=== PATIENT | female | born 1980 | race Caucasian/White ===

== ENCOUNTER 2016-12-07 11:09 | Emergency (ER) | payer OTHER ==
[2016-12-07 11:15] VITALS: BP 141/83
[2016-12-07] MEDS ORDERED: IBUPROFEN 800 MG TABLET PO ONE (11:39)
--- NOTE | 2016-12-07 11:46 | ER Document Report ---
ED Burn/Smoke/Toxic Fumes - General Chief Complaint: Burn Stated Complaint: LEG PAIN Time Seen by Provider: 12/07/16 11:21 Mode of Arrival: Ambulatory Information source: Patient Notes: 36-year-old female presents to ED from sunburn to bilateral front of her legs she states she has headache in the sun from 11-4 yesterday she thinks he has swelling to both legs. TRAVEL OUTSIDE OF THE [place] IN LAST 30 DAYS: No - HPI Patient complains to provider of: Other Onset: Yesterday Where: Outdoors Severity: Severe Pain Level: 5 Context: Other Associated Symptoms: Other - She feels that her legs are swollen and tight Other injuries: LLE, RLE - Related Data Allergies/Adverse Reactions: prednisone Allergy (Severe, Verified 12/07/16 11:26) redness and swelling Past Medical History - General Information source: Patient - Social History Smoking Status: Current Every Day Smoker Chew tobacco use (# tins/day): No Frequency of alcohol use: None Drug Abuse: None Lives with: Family Family History: CAD Patient has suicidal ideation: No Patient has homicidal ideation: No - Past Medical History Cardiac Medical History: Reports: None Pulmonary Medical History: Reports: None EENT Medical History: Reports: None Neurological Medical History: Reports: None Endocrine Medical History: Reports: None Malignancy Medical History: Reports: None GI Medical History: Reports: None Musculoskeltal Medical History: Reports Hx Musculoskeletal Deformity, Reports Hx Musculoskeletal Trauma Psychiatric Medical History: Reports: None Traumatic Medical History: Reports: None Infectious Medical History: Reports: None Past Surgical History: Reports: Hx Section - 2, Hx Orthopedic Surgery - lt knee arthroscopy, Hx Tubal Ligation - Immunizations Hx Diphtheria, Pertussis, Tetanus Vaccination: No - 2002 Hx Pneumococcal Vaccination: 07/13/00 Review of Systems - Review of Systems Constitutional: No symptoms reported EENT: No symptoms reported Cardiovascular: No symptoms reported Respiratory: No symptoms reported Gastrointestinal: No symptoms reported Genitourinary: No symptoms reported Female Genitourinary: No symptoms reported Musculoskeletal: No symptoms reported Skin: Other - Erythematous sunburn to bilateral front of legs no blisters noted Hematologic/Lymphatic: No symptoms reported Neurological/Psychological: No symptoms reported -: Yes All other systems reviewed and negative Physical Exam - Vital signs Vitals: Temp Pulse Resp BP Pulse Ox 98.2 F 99 16 141/83 H 99 12/07/16 11:14 12/07/16 11:14 12/07/16 11:14 12/07/16 11:14 12/07/16 11:14 Interpretation: Normal - General General appearance: Appears well, Alert - HEENT Head: Normocephalic, Atraumatic Eyes: Normal Pupils: PERRL - Respiratory Respiratory status: No respiratory distress Chest status: Nontender Breath sounds: Normal Chest palpation: Normal - Cardiovascular Rhythm: Regular Heart sounds: Normal auscultation Murmur: No - Abdominal Inspection: Normal Distension: No distension Bowel sounds: Normal Tenderness: Nontender Organomegaly: No organomegaly - Back Back: Normal, Nontender - Extremities General upper extremity: Normal inspection, Nontender, Normal color, Normal ROM , Normal temperature General lower extremity: Normal weight bearing. No: Sakina's sign Thigh: Tender - Erythematous warm sunburn Knee: Tender, Other - Front erythematous warm sunburn Calf: Tender, Other - Front erythematous warm sunburn Ankle: Tender. No: Other - Front erythematous warm sunburn - Neurological Neuro grossly intact: Yes Cognition: Normal Orientation: AAOx4 Viviana Coma Scale Eye Opening: Spontaneous Viviana Coma Scale Verbal: Oriented Viviana Coma Scale Motor: Obeys Commands [place] Coma Scale Total: 15 Speech: Normal Motor strength normal: LUE, RUE, LLE, RLE Sensory: Normal - Psychological Associated symptoms: Normal affect, Normal mood - Skin Skin Temperature: Warm Skin Moisture: Dry Skin Color: Normal Location of irregularity: Extremities - Front of bilateral legs erythematous warm sunburn Character of irregularity: Erythematous Irregularity with: Tenderness, Warmth Course - Re-evaluation Re-evalutation: 12/07/16 11:52 Treated with ibuprofen in the ER and instructed to use aloe with lidocaine for the discomfort of legs. - Vital Signs Vital signs: Temp Pulse Resp BP Pulse Ox 98.2 F 99 16 141/83 H 99 12/07/16 11:14 12/07/16 11:14 12/07/16 11:14 12/07/16 11:14 12/07/16 11:14 Discharge - Discharge Clinical Impression: sunburn to blateral legs Condition: Stable Disposition: HOME, SELF-CARE Instructions: Family Physicians / Practices Additional Instructions: Sunburn Sunburn is caused by prolonged exposure to ultraviolet light. This can be natural sunlight or a tanning bed. Your symptoms may include redness or blistering of the skin, fatigue, weakness, and chills that last two or three days. Treatment includes antiinflammatory pain medication, rest, cooling baths, and moisturizing skin cream. Occasionally, cortisone-type medicine is required for severe sunburns. Antihistamines may be helpful if itching is severe as you heal. You should avoid any exposure to ultraviolet light for the next week or two so that further skin damage can be avoided. In the future, you should use sunscreens. Frequent or prolonged ultraviolet light exposure can cause premature skin aging, skin cancers, and wrinkles. Call the doctor if you are not improving in two or three days. Report any drainage, increasing swelling, fever, chills, or other signs of infection. Try the blue aloe lidocaine the pain. Cool baths and antihistamine the itching ibuprofen for pain. FOLLOW-UP CARE: If you have been referred to a physician for follow-up care, call the physician s office for an appointment as you were instructed or within the next two days. If you experience worsening or a significant change in your symptoms, notify the physician immediately or return to the Emergency Department at any time for re-evaluation. Forms: Elevated Blood Pressure, Smoking Cessation Education, Return to Work
== END 2016-12-07 11:53 | disposition home or self-care (01) ==
LOC: ER 11:09
DX: L55.9 Sunburn, unspecified (principal); R51 Headache; M79.89 Other specified soft tissue disorders; F17.200 Nicotine dependence, unspecified, uncomplicated
CPT/HCPCS: 99283

== ENCOUNTER 2017-01-10 10:10 | Emergency (ER) | payer OTHER ==
[2017-01-10] MEDS ORDERED: IPRATROPIUM/ALBUTEROL 0.5-2.5 MG/3 ML AMPUL NEB ONE (10:58)
[2017-01-10] MEDS ORDERED: DEXAMETHASONE 4 MG TABLET PO ONE (10:58)
[2017-01-10] MEDS ORDERED: PSEUDOEPHEDRINE HCL 30 MG TABLET PO ONE (10:59)
--- NOTE | 2017-01-10 11:00 | ER Document Report ---
HPI - HPI Patient complains to provider of: cold symptoms Onset: Other - 3 days Onset/Duration: Gradual Quality of pain: Achy Pain Level: 2 Context: Patient presents with 3 day history of sinus congestion, cough and sore throat. Patient states cough has been productive. Patient has been using albuterol and Pulmicort nebulizer at home without improvement of her symptoms. Patient is here with her child who is also having cough and congestion symptoms. Patient denies any fever. Associated Symptoms: Productive cough, Earache, Sinus pain/drainage, Sore throat. denies: Fever, Nausea, Vomiting Exacerbated by: Denies Relieved by: Denies Similar symptoms previously: Yes Recently seen / treated by doctor: No - ROS ROS below otherwise negative: Yes Systems Reviewed and Negative: Yes All other systems reviewed and negative - CONSTITUTIONAL Constitutional: DENIES: Fever - EENT EENT: REPORTS: Sore Throat, Nasal Drainage-Clear, Congestion - NEURO Neurology: DENIES: Headache - RESPIRATORY Respiratory: REPORTS: Coughing. DENIES: Trouble Breathing - GASTROINTESTINAL Gastrointestinal: DENIES: Patient vomiting, Diarrhea - REPRODUCTIVE Reproductive: DENIES: : - MUSCULOSKELETAL Musculoskeletal: DENIES: Back Pain - DERM Skin Color: Normal Skin Problems: None Past Medical History - General Information source: Patient - Social History Smoking Status: Current Every Day Smoker Cigarette use (# per day): Yes - Half pack per day Smoking Education Provided: Yes - for at least 3 minutes Frequency of alcohol use: None Drug Abuse: None 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 Family History: CAD Patient has suicidal ideation: No Patient has homicidal ideation: No Pulmonary Medical History: Reports: Hx Bronchitis EENT Medical History: Reports: Other - allergies Renal/ Medical History: Denies: Hx Peritoneal Dialysis Musculoskeltal Medical History: Reports Hx Musculoskeletal Deformity, Reports Hx Musculoskeletal Trauma Past Surgical History: Reports: Hx Section - 2, Hx Orthopedic Surgery - lt knee arthroscopy, Hx Tubal Ligation - Immunizations Hx Diphtheria, Pertussis, Tetanus Vaccination: No - 2002 Hx Pneumococcal Vaccination: 07/13/00 Vertical Provider Document - CONSTITUTIONAL Agree With Documented VS: Yes Exam Limitations: No Limitations General Appearance: WD/WN, No Apparent Distress - INFECTION CONTROL TRAVEL OUTSIDE OF THE [place] IN LAST 30 DAYS: No - HEENT HEENT: Atraumatic, Normocephalic. negative: Pharyngeal Exudate, Pharyngeal Tenderness, Pharyngeal Erythema, Tympanic Membrane Red, Tympanic Membrane Bulging Notes: serous Effusion to left ear - NECK Neck: Normal Inspection, Supple - RESPIRATORY Respiratory: No Respiratory Distress, Chest Non-Tender, Rhonchi, Wheezing O2 Sat by Pulse Oximetry: 97 - CARDIOVASCULAR Cardiovascular: Regular Rate, Regular Rhythm, No Murmur - BACK Back: Normal Inspection - MUSCULOSKELETAL/EXTREMETIES Musculoskeletal/Extremeties: MAEW - NEURO Level of Consciousness: Awake, Alert, Appropriate Motor/Sensory: No Motor Deficit - DERM Integumentary: Warm, Dry, No Rash Course - Re-evaluation Re-evalutation: 01/10/17 13:08 Patient continues with scattered wheezing bilaterally with improved air movement. Patient has been taking small sips of oral fluids. Patient continues tachycardic, IV fluids ordered. 01/10/17 14:21 Patient with decreased wheezing bilaterally. Patient states that she does feel somewhat improved. Respirations unlabored. Patient does continue with occasional cough. Discussed worsening signs or symptoms that patient should return immediately for. Patient verbalized understanding and agrees with plan of care. - Vital Signs Vital signs: Temp Pulse Resp BP Pulse Ox 98.5 F 105 H 24 H 147/82 H 97 01/10/17 10:14 01/10/17 10:14 01/10/17 10:14 01/10/17 10:14 01/10/17 10:14 - Laboratory Laboratory results interpreted by me: 01/10/17 14:21 Labs- Entire Visit 01/10/17 11:10 Group A Strep Rapid NEGATIVE - Diagnostic Test Radiology reviewed: Reports reviewed Discharge - Discharge Clinical Impression: Wheezing, Nasal congestion Upper respiratory infection Qualifiers: URI type: unspecified URI Qualified Code(s): J06.9 - Acute upper respiratory infection, unspecified Condition: Stable Disposition: HOME, SELF-CARE Instructions: Stop Smoking ([facility]) Additional Instructions: Return immediately for any new or worsening symptoms Followup with your primary care provider, call tomorrow to make a followup appointment Use saline nasal spray [id number] as directed. You may use Sudafed [id number] to help with nasal congestion Use your nebulizer at home as prescribed Prescriptions: Benzonatate [Tessalon Perle 100 mg Capsule] 100 mg PO Q8HP PRN #20 cap PRN Reason: Dexamethasone 4 mg PO DAILY #4 tablet Hydrocodone/Acetaminophen [Kane 5-325 Tablet] 1 each PO Q8 PRN #12 tablet PRN Reason: Forms: Smoking Cessation Education, Return to Work Referrals: DEVON VAZQUEZ MD [NO LOCAL MD] - 01/12/17
[2017-01-10] MEDS ORDERED: ACETAMINOPHEN 325 MG TABLET PO ONE (11:01)
--- NOTE | 2017-01-10 11:30 | RADIOLOGY REPORT (SQ) ---
EXAM DESCRIPTION: CHEST PA/LAT COMPLETED DATE/TIME: 01/10/2017 11:15 am REASON FOR STUDY: cough COMPARISON: 2011. TECHNIQUE: Frontal and lateral radiographic views of the chest acquired. NUMBER OF VIEWS: Two view. LIMITATIONS: None. FINDINGS: LUNGS AND PLEURA: No opacities, masses or pneumothorax. No pleural effusion. MEDIASTINUM AND HILAR STRUCTURES: No masses or contour abnormalities. HEART AND VASCULAR STRUCTURES: Heart normal size. No evidence for failure. BONES: No acute findings. HARDWARE: None in the chest. OTHER: No other significant finding. IMPRESSION: NO SIGNIFICANT RADIOGRAPHIC FINDING IN THE CHEST. TECHNICAL DOCUMENTATION: JOB ID: [id number] [employer]- All Rights Reserved
[2017-01-10] MEDS ORDERED: ALBUTEROL SULFATE 0.083% NEB 2.5 MG/3 ML AMPUL NEB ONE ×2 (11:48→12:17)
[2017-01-10] MEDS ORDERED: NORMAL SALINE 1000 ML 1,000 ML IV ONE (13:08)
[2017-01-10 14:50] VITALS: BP 120/62
== END 2017-01-10 14:51 | disposition home or self-care (01) ==
LOC: ER 10:10
DX: J06.9 Acute upper respiratory infection, unspecified (principal); R09.81 Nasal congestion; R06.2 Wheezing; F17.210 Nicotine dependence, cigarettes, uncomplicated; Z98.51 Tubal ligation status
CPT/HCPCS: 94640 ×2; 99283; 87070; 87880; 87077; 71020; J7030; J7620

== ENCOUNTER 2018-05-20 13:58 | Emergency (ER) | payer OTHER ==
--- NOTE | 2018-05-20 14:37 | ER Document Report ---
ED General - General Chief Complaint: Shoulder Pain Stated Complaint: RIGHT SHOULDER PAIN Time Seen by Provider: 05/20/18 14:16 Mode of Arrival: Ambulatory Information source: Patient Notes: 37-year-old female presents to ED for complaint of right shoulder and neck scapular and clavicle and arm pain. She states this started about 2 weeks ago it was a achy pain that would come and go. She states it is been very intermittent until last night the pain got much worse lasted for about 2 minutes and then has been achy and throbbing since then. She states the pain is much worse when she moves the arm or tries to lift the arm above her head. She states she had an appointment with orthopedics this morning but it was for her knee replacement and he stated they could not see her for a new problem that she would need to get a new consult for a new problem. 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 She states she has Celebrex and she took one today and she has tramadol from her knee replacement and she does not need new pain medicine she just needs to know why it is getting worse. TRAVEL OUTSIDE OF THE [place] IN LAST 30 DAYS: No - HPI Onset: Other - 2 weeks with exacerbation last night Onset/Duration: Gradual, Intermittent Quality of pain: Achy, Sharp, Throbbing Severity: Moderate Pain Level: 4 Associated symptoms: Other - Right neck shoulder clavicle scapular and arm Exacerbated by: Movement Relieved by: Denies Similar symptoms previously: Yes Recently seen / treated by doctor: Yes - Related Data Allergies/Adverse Reactions: prednisone Allergy (Severe, Verified 05/20/18 13:59) redness and swelling Past Medical History - General Information source: Patient - Social History Smoking Status: Current Every Day Smoker Cigarette use (# per day): Yes - 10 cig a day Chew tobacco use (# tins/day): No Smoking Education Provided: Yes Frequency of alcohol use: None Drug Abuse: None 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 Family History: CAD Patient has suicidal ideation: No Patient has homicidal ideation: No - Past Medical History Cardiac Medical History: Reports: None Pulmonary Medical History: Reports: Hx Bronchitis EENT Medical History: Reports: None Neurological Medical History: Reports: None Endocrine Medical History: Reports: None Renal/ Medical History: Reports: None Malignancy Medical History: Reports: None GI Medical History: Reports: None Musculoskeletal Medical History: Reports Hx Musculoskeletal Deformity, Reports Hx Musculoskeletal Trauma Skin Medical History: Reports None Psychiatric Medical History: Reports: None Traumatic Medical History: Reports: None Infectious Medical History: Reports: None Past Surgical History: Reports: Hx Section - 2, Hx Orthopedic Surgery - lt knee arthroscopy, Hx Tubal Ligation - Immunizations Hx Diphtheria, Pertussis, Tetanus Vaccination: No - 2002 Hx Pneumococcal Vaccination: 07/13/00 Review of Systems - Review of Systems Constitutional: No symptoms reported EENT: No symptoms reported Cardiovascular: No symptoms reported Respiratory: No symptoms reported Gastrointestinal: No symptoms reported Genitourinary: No symptoms reported Female Genitourinary: No symptoms reported Musculoskeletal: No symptoms reported Skin: No symptoms reported Hematologic/Lymphatic: No symptoms reported Neurological/Psychological: No symptoms reported -: Yes All other systems reviewed and negative Physical Exam - Vital signs Vitals: Temp Pulse Resp BP Pulse Ox 98.6 F 93 18 148/90 H 98 05/20/18 14:13 05/20/18 14:13 05/20/18 14:13 05/20/18 14:13 05/20/18 14:13 Interpretation: Normal - General General appearance: Appears well, Alert - HEENT Head: Normocephalic, Atraumatic Eyes: Normal Pupils: PERRL - Respiratory Respiratory status: No respiratory distress Chest status: Nontender Breath sounds: Normal Chest palpation: Normal - Cardiovascular Rhythm: Regular Heart sounds: Normal auscultation Murmur: No - Abdominal Inspection: Normal Distension: No distension Bowel sounds: Normal Tenderness: Nontender Organomegaly: No organomegaly - Back Back: Normal, Tender - cervical area. No: Vertebra tenderness - Extremities General upper extremity: Normal color, Normal temperature General lower extremity: Normal inspection, Nontender, Normal color, Normal ROM , Normal temperature, Normal weight bearing. No: Sakina's sign Shoulder: Tender, Limited ROM - due to pain Arm: Tender - Neurological Neuro grossly intact: Yes Cognition: Normal Orientation: AAOx4 Viviana Coma Scale Eye Opening: Spontaneous [place] Coma Scale Verbal: Oriented Peak Coma Scale Motor: Obeys Commands [place] Coma Scale Total: 15 Speech: Normal Motor strength normal: LUE, RUE, LLE, RLE Sensory: Normal - Psychological Associated symptoms: Normal affect, Normal mood - Skin Skin Temperature: Warm Skin Moisture: Dry Skin Color: Normal Course - Re-evaluation Re-evalutation: 05/20/18 16:14 X-rays discussed with patient and written report of x-rays given to patient. Plan of treatment is continue Celebrex use Ultram that she already has tried Tylenol and Aspercreme for pain. She is also been given muscle relaxer Flexeril for the muscle pain that is going on at this time. Patient is to follow-up with her primary doctor and with orthopedics. X-rays do show osteophytes in the shoulder region that could be causing impingement. Patient has full range of motion of her hand arm elbow and with no change in sensation to the fingers hand or arm. She verbalized understanding and agreement with treatment plan. - Vital Signs Vital signs: Temp Pulse Resp BP Pulse Ox 98.1 F 75 16 128/92 H 98 05/20/18 16:11 05/20/18 16:11 05/20/18 16:11 05/20/18 16:11 05/20/18 16:11 - Diagnostic Test Radiology reviewed: Image reviewed, Reports reviewed Discharge - Discharge Clinical Impression: Arthritis of shoulder region, left, Pain of left shoulder region Condition: Stable Disposition: HOME, SELF-CARE Additional Instructions: Arthritis Your symptoms are due to arthritis. Arthritis is an inflammation of the joints. There are many types -- osteoarthritis (due to "wear and tear"), auto- immmune arthritis (such as rheumatoid, lupus, Ivette's, and others), and crystal -induced arthritis (such as gout and pseudogout). The physician's examination, combined with laboratory tests, will determine the cause of your arthritis. All types of arthritis are treated with antiinflammatory medications. Other medication may be required for special types of arthritis, or if your problem does not respond to the antiinflammatory medicine. Local warmth may be helpful. Move the involved joints through the full range of motion daily. Mild exercise is usually still possible for most persons with arthritis (ask your physician). Swimming provides good exercise without damaging the joints. Contact the physician if you are worsening in any way. Acetaminophen Acetaminophen may be taken for pain relief or fever control. It's much safer than aspirin, offering a wider range of "safe" dosages. It is safe during . Some brand names are Tylenol, Panadol, Datril, Anacin 3, Tempra, and Liquiprin. Acetaminophen can be repeated every four hours. The following are maximum recommended dosages: WEIGHT Dose Drops Elixir Chewable( 80mg) (LBS.) drprs=droppers tsp=teaspoon 6 40 mg .4 ml (1/2) 6-11 80 mg .8 ml (full) 1/2 tsp 1 tab 12-16 120 mg 1 1/2 drprs 3/4 tsp 1 1/2 tabs 17-23 160 mg 2 drprs 1 tsp 2 tabs 24-30 240 mg 3 drprs 1 1/2 tsp 3 tabs 30-35 320 mg 2 tsp 4 tabs 36-41 360 mg 2 1/4 tsp 4 1 /2 tabs 42-47 400 mg 2 1/2 tsp 5 tabs 48-53 480 mg 3 tsp 6 tabs 54-59 520 mg 3 1/4 tsp 6 1 /2 tabs 60-64 560 mg 3 1/2 tsp 7 tabs 65-70 600 mg 3 3/4 tsp 7 1 /2 tabs 71-76 640 mg 4 tsp 8 tabs 77-82 720 mg 4 1/2 tsp 9 tabs 83-88 800 mg 5 tsp 10 tabs >89 pounds or adults 650 mg to 900 mg Acetaminophen can be repeated every four hours. Maximum daily dose not to exceed 4000 mg. These maximum recommended dosages are slightly higher than the dosages written on the product container, but these dosages are very safe and well below the toxic dosage for acetaminophen. Muscle Relaxers Muscle relaxing medications are usually prescribed for acute muscle spasm or injury to the neck and back. They are often combined with antiinflammatory pain medication for increased relief. You may stop the muscle relaxer when the pain and stiffness have improved. Start the medication again if spasms recur. Muscle relaxers may cause drowsiness, especially with the first dose. Do not operate machinery or drive while under the effects of the medication. Most muscle relaxers last up to 24 hours. Do not combine the medication with alcohol. Please try lidocaine gels creams or patches that you can get [id number] for your pain. Continue taking your Celebrex as prescribed. Continue taking your Ultram as prescribed for your pain. Ice Massage When experiencing low back spasms, you can ice-massage every hour. Freeze water in a paper or styrofoam cup. Peel one or two inches off the top of the cup. The ice goes directly against the skin. You use the remainder of the cup for a handle. Lie on your stomach with a pillow under your pelvis and have someone give you the ice massage. You may also lie on your side with a pillow in between your legs. Gently massage a four inch by six inch area on one side of your spine, but not directly on the bone. Ice the area where you think the pain starts. Do this for five to seven minutes. At first the ice will feel very cold and then it will burn. Do not do any longer than seven minutes; you do not want to get frostbite. Warm Packs After approximately two days, apply gentle heat (such as a heating pad or hot water bottle) for about 20 to 30 minutes about every two hours -- at least four times daily. Warmth and elevation will help you make a more rapid recovery , and will ease the pain considerably. Do not use HOT heat, and never apply heat for longer than 30 minutes. The continuous heat can invisibly damage skin and muscles -- even when no burn is seen on the surface. Damaged muscles can make you MORE sore. Exercise Program for the Shoulder Since the shoulder moves in so many directions, the joint attachment is weak. Muscles provide most of the stability to the shoulder. You must exercise your shoulder to prevent painful instability or stiffening. PASSIVE - These may be begun within a few days of the injury. While standing, lean forward, allowing the arm to hang down towards the floor. Move the arm in small circles while slowly twisting your chest towards and away from the hanging arm. Do this for one minute. ACTIVE - These may be performed when the doctor gives permission. Begin with the arms at the sides. Raise the arms forward (shoulder's width apart) until they reach shoulder level. Then slowly swing both arms back until they are aiming straight out away from each other. Then bring them forward again, and finally, lower them to your sides. Repeat 20 to 30 times. As you improve, put weights in your hands for the exercise. Start with one pound, and work up to 10 pounds. Never use more than is comfortable. Athletes may work up to 30 pounds. FOLLOW-UP CARE: If you have been referred to a physician for follow-up care, call the physician s office for an appointment as you were instructed or within the next two days. If you experience worsening or a significant change in your symptoms, notify the physician immediately or return to the Emergency Department at any time for re-evaluation. Prescriptions: Cyclobenzaprine HCl [Flexeril 10 mg Tablet] 10 mg PO TIDP PRN #15 tab PRN Reason: Forms: Elevated Blood Pressure, Smoking Cessation Education, Return to Work Referrals: DEVON VAZQUEZ MD [Primary Care Provider] - Follow up as needed MANISH CRANE DO [ACTIVE STAFF] - Follow up as needed
--- NOTE | 2018-05-20 15:08 | RADIOLOGY REPORT (SQ) ---
EXAM DESCRIPTION: SHOULDER RIGHT 2 OR MORE VIEWS COMPLETED DATE/TIME: 05/20/2018 2:57 pm REASON FOR STUDY: pain rt neck shoulder clavicle scapula arm COMPARISON: 01/10/2017 NUMBER OF VIEWS: Three views. TECHNIQUE: Internal rotation, external rotation, and Y view images acquired of the right shoulder. LIMITATIONS: None. FINDINGS: MINERALIZATION: Normal. BONES: No evidence of fracture dislocation. Subacromial spur/osteophyte. JOINTS: No dislocation. VISUALIZED LUNGS AND RIBS: No pneumothorax. No rib fracture. SOFT TISSUES: No radiopaque foreign body. OTHER: No other significant finding. IMPRESSION: No evidence of acute osseous abnormality. Subacromial spur/osteophyte which may cause subacromial impingement. Recommend correlation with symp tomatology. TECHNICAL DOCUMENTATION: JOB ID: [id number] [employer]- All Rights Reserved Reading location - IP/workstation name: [email or web address]
--- NOTE | 2018-05-20 15:11 | RADIOLOGY REPORT (SQ) ---
EXAM DESCRIPTION: CERV SP 4 OR 5 VIEWS COMPLETED DATE/TIME: 05/20/2018 2:57 pm REASON FOR STUDY: pain rt neck shoulder clavicle scapula arm COMPARISON: None. NUMBER OF VIEWS: Five views. TECHNIQUE: AP, lateral, obliques and odontoid radiographic images acquired of the cervical spine. LIMITATIONS: None. FINDINGS: MINERALIZATION: Normal. ALIGNMENT: Straightening of the normal cervical lordosis, likely positional. VERTEBRAE: Vertebral bodies of normal height. DISCS: No significant osteophytes or sclerosis. Disc height maintained. FORAMINA: No osteophytes or foraminal narrowing. LATERAL AND POSTERIOR ELEMENTS: Facets, lateral masses and spinous processes without significant find ings. HARDWARE: None in the spine. SOFT TISSUES: No masses or calcifications. Lung apices clear. OTHER: No other significant finding. IMPRESSION: No evidence of acute osseous abnormality. No significant degenerative change. TECHNICAL DOCUMENTATION: JOB ID: [id number] [employer]- All Rights Reserved Reading location - IP/workstation name: [email or web address]
[2018-05-20 16:12] VITALS: BP 128/92
== END 2018-05-20 16:17 | disposition home or self-care (01) ==
LOC: ER 13:58
DX: M19.012 Primary osteoarthritis, left shoulder (principal); M25.511 Pain in right shoulder; M54.2 Cervicalgia; F17.210 Nicotine dependence, cigarettes, uncomplicated
CPT/HCPCS: 72050; 99283

== ENCOUNTER 2018-06-07 08:05 | Emergency (ER) | payer OTHER ==
[2018-06-07] MEDS ORDERED: IPRATROPIUM/ALBUTEROL 0.5-2.5 MG/3 ML AMPUL NEB ONE (08:51)
[2018-06-07] MEDS ORDERED: ALBUTEROL SULFATE 0.083% NEB 2.5 MG/3 ML AMPUL NEB ONE (08:51)
--- NOTE | 2018-06-07 08:54 | ER Document Report ---
ED General - General Chief Complaint: Cough Stated Complaint: CONGESTION Time Seen by Provider: 06/07/18 08:37 TRAVEL OUTSIDE OF THE [place] IN LAST 30 DAYS: No - HPI Notes: Patient is a 37-year-old female that presents to the emergency department for chief complaint of cough and congestion. Patient reports 1 week of sinus congestion and nasal drainage. She saw her primary care doctor at onset of symptoms and has been taking Mucinex and Sudafed as recommended with minimal relief. Yesterday she began to feel wheezy and have a dry cough. She denies any fevers but last night did have sweats and chills. She did not get an influenza vaccine this year. She does have a history of needing breathing treatments in the past but she was a child the last time she needed a nebulizer. She does not currently have albuterol inhaler. She does smoke tobacco daily Past Medical History: Arthritis Past Surgical History: , tubal ligation, partial left knee replacement Social History: Early tobacco. Denies drugs and alcohol Family History: Reviewed and noncontributory for presenting illness Allergies: Reviewed, see documented allergy list. REVIEW OF SYSTEMS: CONSTITUTIONAL : No fever chills diaphoresis No recent illness EENT: No vision changes congestion No sore throat CARDIOVASCULAR: No chest pain No palpitations RESPIRATORY: shortness of breath cough No difficulty breathing GASTROINTESTINAL: No abdominal pain No nausea No vomiting No diarrhea GENITOURINARY: No dysuria No hematuria No difficulty urinating MUSCULOSKELETAL: No back pain No leg pain No arm pain SKIN: No rashes No lesions LYMPHATIC: No swollen, enlarged glands. NEUROLOGICAL: No lightheadedness No headache No weakness No paresthesias PSYCHIATRIC: No anxiety No depression PHYSICAL EXAMINATION: Vital signs reviewed, nursing noted reviewed. GENERAL: Well-appearing, well-nourished and in no acute distress. HEAD: Atraumatic, normocephalic. EYES: Eyes appear normal, extraocular movements intact, sclera anicteric, conjunctiva are normal. ENT: Bilateral nasal mucosal edema and rhinorrhea. Oropharynx clear without exudates. Moist mucous membranes. NECK: Normal range of motion, supple without lymphadenopathy LUNGS: Breath sounds diminished with end expiratory wheezing. No tachypnea or respiratory distress HEART: Regular rate and rhythm without murmurs ABDOMEN: Soft, nontender, normoactive bowel sounds. No rebound, guarding, or rigidity. No masses appreciated. EXTREMITIES: Nontender, good range of motion, no pitting or edema. NEUROLOGICAL: No focal neurological deficits. Moves all extremities spontaneously Motor and sensory grossly intact on exam. PSYCH: Normal mood, normal affect. SKIN: Warm, Dry, normal turgor, no rashes or lesions noted on exposed skin - Related Data Allergies/Adverse Reactions: prednisone Allergy (Severe, Verified 05/20/18 13:59) redness and swelling Past Medical History - Social History Smoking Status: Current Every Day Smoker Family History: Reviewed & Not Pertinent, CAD Pulmonary Medical History: Reports: Hx Bronchitis Renal/ Medical History: Denies: Hx Peritoneal Dialysis Musculoskeletal Medical History: Reports Hx Musculoskeletal Deformity, Reports Hx Musculoskeletal Trauma Past Surgical History: Reports: Hx Section - 2, Hx Orthopedic Surgery - lt knee arthroscopy, Hx Tubal Ligation - Immunizations Hx Diphtheria, Pertussis, Tetanus Vaccination: No - 2002 Hx Pneumococcal Vaccination: 07/13/00 Physical Exam - Vital signs Vitals: Temp Pulse Resp BP Pulse Ox 97.8 F 104 H 20 120/78 99 06/07/18 08:15 06/07/18 08:15 06/07/18 08:15 06/07/18 08:15 06/07/18 08:15 Course - Re-evaluation Re-evalutation: 06/07/18 08:54 Vitals reviewed. Nursing notes reviewed. Patient given albuterol and DuoNeb for symptom medic management. Chest x-ray obtained to evaluate for underlying pneumonia. 06/07/18 10:02 Patient reevaluated after aerosols and states she feels like she is breathing better. She reports feeling jittery after the albuterol. She has remained afebrile and hemodynamically stable. Chest x-ray shows no acute process including pneumonia. Patient is afebrile and symptoms have been ongoing for a week, I do not suspect influenza and she is outside the window for Tamiflu. Patient will be given albuterol and spacer for her reactive airway. Her sinus congestion has not been greater than 10 days and antibiotics not currently indicated for acute sinusitis. She will follow with her primary care doctor in the next few days if her symptoms are persisting for reevaluation. She will return for new or worsening symptoms. Discharged home in stable condition. Chest X-Ray 06/07/18 08:52 IMPRESSION: NO ACUTE RADIOGRAPHIC FINDING IN THE CHEST. - Vital Signs Vital signs: Temp Pulse Resp BP Pulse Ox 97.8 F 100 18 120/78 99 06/07/18 08:15 06/07/18 09:00 06/07/18 09:00 06/07/18 08:15 06/07/18 09:00 Discharge - Discharge Clinical Impression: URI (upper respiratory infection) Qualifiers: URI type: unspecified URI Qualified Code(s): J06.9 - Acute upper respiratory infection, unspecified Reactive airway disease with acute exacerbation Qualifiers: Asthma severity: mild Asthma persistence: intermittent Qualified Code(s): J45.21 - Mild intermittent asthma with (acute) exacerbation Condition: Stable Disposition: HOME, SELF-CARE Instructions: Upper Respiratory Illness ([facility]) Additional Instructions: Please return to the emergency department if you have any worsening, or concern of your symptoms. Please return to the emergency department if you develop chest pain, difficulty breathing, severe abdominal pain, or ongoing vomiting. Please follow-up with your primary care physician in 2-3 days and any other recommended physicians. If prescribed, take all medications as directed. If you have any questions or concerns do not hesitate to return the emergency department for evaluation. Prescriptions: Albuterol Sulfate [Ventolin Hfa 8 gm Mdi (1 Mdi/ER Disp)] 2 puff IH ASDIR PRN # 1 inhaler PRN Reason: wheezing Inhaler, Assist Devices [Space Chamber Plus] 1 each MC DAILY #1 spacer Forms: Return to Work Referrals: DEVON VAZQUEZ MD [Primary Care Provider] - Follow up as needed
--- NOTE | 2018-06-07 09:41 | RADIOLOGY REPORT (SQ) ---
EXAM DESCRIPTION: CHEST SINGLE VIEW COMPLETED DATE/TIME: 06/07/2018 9:15 am REASON FOR STUDY: cough COMPARISON: Two-view chest 01/10/2017 EXAM PARAMETERS: NUMBER OF VIEWS: One view. TECHNIQUE: Single frontal radiographic view of the chest acquired. RADIATION DOSE: NA LIMITATIONS: None. FINDINGS: LUNGS AND PLEURA: No opacities, masses or pneumothorax. No pleural effusion. MEDIASTINUM AND HILAR STRUCTURES: No masses. Contour normal. HEART AND VASCULAR STRUCTURES: Heart normal in size. Normal vasculature. BONES: No acute findings. HARDWARE: None in the chest. OTHER: No other significant finding. IMPRESSION: NO ACUTE RADIOGRAPHIC FINDING IN THE CHEST. TECHNICAL DOCUMENTATION: JOB ID: [id number] [employer]- All Rights Reserved Reading location - IP/workstation name: [email or web address]
[2018-06-07 10:36] VITALS: BP 109/78
== END 2018-06-07 10:36 | disposition home or self-care (01) ==
LOC: ER 08:05
DX: J45.21 Mild intermittent asthma with (acute) exacerbation (principal); J06.9 Acute upper respiratory infection, unspecified; R05 Cough; R09.81 Nasal congestion; R61 Generalized hyperhidrosis; R68.83 Chills (without fever); R06.02 Shortness of breath; J34.89 Other specified disorders of nose and nasal sinuses; F17.200 Nicotine dependence, unspecified, uncomplicated; Z88.8 Allergy status to other drugs, medicaments and biological substances
CPT/HCPCS: 94640; 99283; 71045; J7620

== ENCOUNTER 2019-09-18 15:03 | Emergency (ER) | payer BC, OTHER ==
--- NOTE | 2019-09-18 15:12 | ER Document Report ---
ED Extremity Problem, Lower - General Chief Complaint: Leg Pain Stated Complaint: LEG PAIN Time Seen by Provider: 09/18/19 15:05 Primary Care Provider: DEVON VAZQUEZ MD [Primary Care Provider] - 09/19/19 Mode of Arrival: Ambulatory Information source: Patient Notes: 38-year-old female presented to ED for complaint of red streaks to her right thigh this afternoon which are fading now. She states that on Thursday she started on prednisone Zyrtec Flonase Celebrex albuterol inhaler for her chest tightness viral illness. She states in the past she had been allergic to prednisone but the doctor told her that it was because of the high dose so he put on a much lower dose this time. She had not been having any problems with the prednisone but she did develop this redness today which is improving. She states she takes 2 tablets each morning for 5 days and the last dose is Thursday. She states she has been having some hot flashes since Thursday. TRAVEL OUTSIDE OF THE [place] IN LAST 30 DAYS: No - HPI Patient complains to provider of: Other - She states there were red streaks to the thigh they were feverish not itchy. 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[employer] Lives with: Family Family History: CAD Patient has suicidal ideation: No Patient has homicidal ideation: No - Past Medical History Cardiac Medical History: Reports: None Pulmonary Medical History: Reports: Hx Bronchitis, Hx Pneumonia EENT Medical History: Reports: None Neurological Medical History: Reports: None Renal/ Medical History: Reports: None Malignancy Medical History: Reports: None GI Medical History: Reports: Hx Gastroesophageal Reflux Disease Musculoskeletal Medical History: Reports Hx Arthritis, Reports Hx Musculoskeletal Deformity, Reports Hx Musculoskeletal Trauma Skin Medical History: Reports Hx Cellulitis Psychiatric Medical History: Reports: Hx Attention Deficit Hyperactivity Disorder - ADD Traumatic Medical History: Reports: None Infectious Medical History: Reports: None Past Surgical History: Reports: Hx Section - 2, Hx Orthopedic Surgery - lt knee arthroscopy, Hx Tubal Ligation - Immunizations Hx Diphtheria, Pertussis, Tetanus Vaccination: No - 2018 Hx Pneumococcal Vaccination: 07/13/00 Review of Systems - Review of Systems Constitutional: No symptoms reported EENT: No symptoms reported Cardiovascular: No symptoms reported Respiratory: No symptoms reported Gastrointestinal: No symptoms reported Genitourinary: No symptoms reported Female Genitourinary: No symptoms reported Musculoskeletal: No symptoms reported Skin: Other - She did have redness streaking to the right thigh which is fading. Hematologic/Lymphatic: No symptoms reported Neurological/Psychological: No symptoms reported -: Yes All other systems reviewed and negative Physical Exam - Vital signs Vitals: Temp Pulse Resp BP Pulse Ox 98.5 F 109 H 28 H 138/77 H 98 09/18/19 15:07 09/18/19 15:07 09/18/19 15:07 09/18/19 15:07 09/18/19 15:07 Interpretation: Normal - General General appearance: Appears well, Alert - HEENT Head: Normocephalic, Atraumatic Eyes: Normal Pupils: PERRL - Respiratory Respiratory status: No respiratory distress Chest status: Nontender Breath sounds: Normal Chest palpation: Normal - Cardiovascular Rhythm: Regular Heart sounds: Normal auscultation Murmur: No - Abdominal Inspection: Normal Distension: No distension Bowel sounds: Normal Tenderness: Nontender Organomegaly: No organomegaly - Back Back: Normal, Nontender - Extremities General upper extremity: Normal inspection, Nontender, Normal color, Normal ROM, Normal temperature General lower extremity: Normal ROM, Normal weight bearing. No: Sakina's sign Shoulder: Other - Red streak to right thigh that are fading. - Neurological Neuro grossly intact: Yes Cognition: Normal Orientation: AAOx4 Viviana Coma Scale Eye Opening: Spontaneous Viviana Coma Scale Verbal: Oriented Brixey Coma Scale Motor: Obeys Commands Viviana Coma Scale Total: 15 Speech: Normal Motor strength normal: LUE, RUE, LLE, RLE Sensory: Normal - Psychological Associated symptoms: Normal affect, Normal mood - Skin Skin Temperature: Warm Skin Moisture: Dry Skin Color: Normal Course - Re-evaluation Re-evalutation: 09/18/19 21:33 Patient was instructed not to take anymore prednisone until she got to the doctor's office who is her primary care doctor and her employer. She was instructed to use the Pepcid and Benadryl until such time she saw her primary care doctor. Patient verbalized understanding and agreement with treatment plan and patient was discharged home. According to the patient, her redness to her thigh was much improved by the time I examined her from what she stated it was earlier. - Vital Signs Vital signs: Temp Pulse Resp BP Pulse Ox 98.5 F 92 20 138/77 H 98 09/18/19 15:07 09/18/19 15:25 09/18/19 15:25 09/18/19 15:07 09/18/19 15:07 Discharge - Discharge Clinical Impression: Erythema to right thigh Condition: Stable Disposition: HOME, SELF-CARE Additional Instructions: ACUTE ALLERGIC REACTION: Your symptoms are due to an allergic reaction. Allergy can cause hives, swelling of the hands, feet, and face, hoarseness, and difficulty swallowing or breathing. It may be due to exposure to medication, animal dander, foods, infection, or insect bites. Medication is a common cause, even when prior use of this same medication caused no problems. Acute treatment may include adrenalin and antihistamines. Usually, the specific allergic agent can't be identified unless repeated episodes occur. Home treatment includes the following: (1) Stop any suspicious medications. This will be discussed with you. (2) Oral antihistamines for the next four to five days. Example, diphenhydramine (Benadryl) every four hours. (3) You may also use cimetidine (Tagamet), ranitidine (Zantac), or famotidine (Pepcid) every four hours if diphenhydramine is not controlling itching and hives. (4) Avoid aspirin until the hives completely disappear. (5) Avoid hot baths or showers until the hives are completely gone. Call the doctor if faintness, difficulty swallowing, tightness in the chest, or wheezing occurs. ACID-SUPPRESSING MEDICATION: You have a prescription for medicine which reduces the stomach's secretion of acid. Examples include Zantac, Tagament, and Pepcid. These drugs are often used to allow healing of ulcers or esophagitis. They may be needed to prevent recurrence of ulcers in some patients, or to prevent damage from acid reflux in the esophagus. Take all medication as prescribed, even after the pain is gone. Regular antacids may be added as needed if you have symptoms while taking this medicine. These medications sometimes are prescribed for allergic reactions because they have anti-histaminic effects and relieve the rash and itching of the reaction. There are usually no side effects from this medication. But, in rare cases and particularly in the elderly, serious problems can occur. Contact your doctor if there is fever, rash, hallucinations, confusion, or unusual bruising. Contact your doctor at once if you develop lightheadedness, black or bloody stool, or bloody vomitus. USE OF DIPHENHYDRAMINE: The use of diphenhydramine (Benadryl) has been recommended to control allergic symptoms. The 25 mg strength is available over- the-counter, as well as the elixir. This antihistamine is used for many symptoms. It's useful for itching, watering eyes and nose, allergic swelling, hives, and insect stings. The medication can be repeated four times daily. Age Elixir (12.5 mg/tsp) 25 mg pill 2-3 yr 1/2 tsp 4-8 yr 1 tsp 9-14 yr 2 tsp one tab adult 1-2 tabs Antihistamines may cause drowsiness, especially with the first dose. Do not operate machinery or drive while under the effects of the medication. Do not combine the medication with alcohol, or with any other medication without talking to your doctor. FOLLOW-UP CARE: If you have been referred to a physician for follow-up care, call the physicians office for an appointment as you were instructed or within the next two days. If you experience worsening or a significant change in your symptoms, notify the physician immediately or return to the Emergency Department at any time for re-evaluation. Prescriptions: Famotidine [Pepcid 20 mg Tablet] 20 mg PO BID #12 tablet Forms: Elevated Blood Pressure Referrals: DEVON VAZQUEZ MD [Primary Care Provider] - 09/19/19
[2019-09-18 15:17] VITALS: BP 138/77
[2019-09-18] MEDS ORDERED: DIPHENHYDRAMINE HCL 50 MG CAPSULE PO ONE (15:18)
[2019-09-18] MEDS ORDERED: FAMOTIDINE 20 MG TABLET PO ONE (15:18)
== END 2019-09-18 15:33 | disposition home or self-care (01) ==
LOC: ER 15:03
DX: L53.9 Erythematous condition, unspecified (principal); B34.9 Viral infection, unspecified; R07.89 Other chest pain; F17.200 Nicotine dependence, unspecified, uncomplicated; Z71.6 Tobacco abuse counseling; Z88.8 Allergy status to other drugs, medicaments and biological substances
CPT/HCPCS: 99283; 99406